=== PATIENT | male | born 1950 | race Caucasian/White ===

== ENCOUNTER 2017-10-07 08:01 | Emergency (ER) | payer BC ==
[~2017-10-07] VITALS: Ht 193 cm; Wt 111.1 kg
[~2017-10-07 08:01] MED LIST: IPRA14.73 INH; LISI10TA5 PO
[2017-10-07 08:26] VITALS: BP_SYST 157
[2017-10-07] MEDS ORDERED: IPRATROPIUM/ALBUTEROL SULFATE 3 ML AMPUL.NEB INH ONE (08:45)
[2017-10-07 10:09] VITALS: BP_SYST 145
== END 2017-10-07 10:09 | disposition home or self-care (01) ==
LOC: SED 08:01
DX: J45.901 Unspecified asthma with (acute) exacerbation (principal); I10 Essential (primary) hypertension
CPT/HCPCS: 71046; 94640; 99284; J7620